=== PATIENT | male | born 1950 | race Caucasian/White ===

== ENCOUNTER → 2017-03-02 12:43 | Outpatient (CLI) | payer BC ==
[2016-05-13 13:13] VITALS: BMI 30.1
[~2017-03-02 12:43] MED LIST: CHLORTHALIDONE25 MG PO; FISH OIL 1,0001 CA1 PO; MULTIPLE VITAMI1 TA1 PO; NORVASC5 MG PO
== END | disposition home or self-care (01) ==
LOC: D.CT 12:43
DX: R10.9 Unspecified abdominal pain (principal); D64.9 Anemia, unspecified

== ENCOUNTER 2018-05-22 05:08 | Day surgery (SDC) | payer BC ==
[~2018-05-22] VITALS: Ht 177.8 cm; Wt 86.4 kg
--- NOTE | ~2018-05-22 | OP ---
PATIENT NAME: KAIT DUMONT MEDICAL RECORD: [id number] :50 LOCATION:D.OPS ADMISSION DATE: SURGEON: MARIAMA KONG MD DATE OF OPERATION: 05/22/2018 PREOPERATIVE DIAGNOSES: History of the colon polyps, in need of surveillance colonoscopy. POSTOPERATIVE DIAGNOSES: History of the colon polyps, in need of surveillance colonoscopy with moderate pandiverticulosis. Also, 2 new sessile polyps. There was a cluster of 2 polyps right next to one another in the cecum. Each of these were 5 mm polyps and then there was another polyp that was a 6 mm polyp that was removed and was also sessile. PROCEDURES: 1. Total colonoscopy to cecum. 2. Hot biopsy forceps polypectomies times 2. SURGEON: Mariama Kong MD APPLICATIONS SYSTEMS ENGINEER: None. BLOOD LOSS: Minimal. ANESTHESIA: IV sedation. COMPLICATIONS: None. The risks, possible complications and alternatives to the procedure were explained to the patient. He elects to proceed. ENDOSCOPIC COURSE: The patient was conveyed to the endoscopy suite electively on 05/22/2018. IV sedation was induced by the anesthesia staff. The patient was placed in the Da Silva position. A digital rectal examination was performed. Post-prostatectomy changes were noted. A colonoscope was inserted through the anus. It was easily advanced to the cecum. The prep was excellent. I slowly withdrew the endoscope. I irrigated and aspirated extensively. I utilized normal imaging as well as narrow band imaging. Polyps were removed utilizing the hot biopsy forceps polypectomy technique. These polyps were removed in their entireties. I dragged the folds. A retroflexed view was obtained in the rectum. The pullback was greater than 18 minute pullback. I then unretroflexed the scope and removed it under direct vision. I plan to see the patient in my office to review the results of pathology in several weeks. I will plan for his next surveillance colonoscopy to take place in 3 years. TRANSINT:[id number] Voice Confirmation ID: [id number] DOCUMENT ID: [id number] OPERATIVE REPORT [id number] KAIT DUMONT ROBERT MD at 1544 CC: ZAIDA CERVANTES and LUISITO DUMONT MD [id number] DICTATION DATE: 05/22/18921 CAREER CONSULTANT: 05/22/18 0954 [facility] 05/22/18 [place] [id number] [place] [address]
--- NOTE | ~2018-05-22 | HP ---
PATIENT: KAIT DUMONT MEDICAL RECORD: [id number] ACCOUNT: [id number] LOCATION:[facility] : 50 ADMISSION DATE: 05/22/18 PCP: ZAIDA CERVANTES MD HISTORY AND PHYSICAL EXAMINATION CHIEF COMPLAINT: Here for colonoscopy. HISTORY OF PRESENT ILLNESS: The patient has history of colon polyps. He has constipation frequently. He is here for surveillance colonoscopy. He has a history of prostate cancer. Last colonoscopy was on 05/13/2016. He had 5 sessile polyps ranging in size from 1.2 cm to 2.5 cm, large internal hemorrhoids and he was having some hematochezia at that time, likely due to internal hemorrhoidal bleeding. Pathology on the polyps revealed adenomatous polyps as well as hyperplastic polyps. He was able to tolerate his prep last evening. SOCIAL HISTORY: Ex-smoker. HOME MEDICATIONS: Please see the nursing list, it includes fish oil. ALLERGIES: ALTACE. REVIEW OF SYSTEMS: Negative for diabetes or thyroid problems. Negative for renal disease or hepatitis. PHYSICAL EXAMINATION: GENERAL: The patient does not appear acutely ill. He does not appear chronically ill. VITAL SIGNS: Reviewed. EARS: External ears appear normal. EYES: Extraocular movements are intact. NECK: Trachea is midline. CHEST: No intercostal retractions. PULMONARY: Nonlabored, no stridor. ABDOMEN: Nontender. IMPRESSION: History of colon polyps. PLAN: Surveillance colonoscopy. TRANSINT:[id number] Voice Confirmation ID: [id number] DOCUMENT ID: [id number] HISTORY AND PHYSICAL [id number] JULIAKAIT ROBERT MD at 1544 CC: ZAIDA CERVANTES and LUISITO DUMONT MD [id number] DICTATION DATE: 05/22/18 0838 PATIENT EDUCATOR: 05/22/18 0926 [facility] 05/22/18 [id number] [place] [address]
[2018-05-22 05:27] LABS: HEMATOCRIT 41.1 % (42.0-54.0); HEMOGLOBIN 14.4 g/dL (13.5-17.5); MCH 31.4 pg (26.0-34.0); MCV 89.5 fL (80.0-100.0); MEAN PLATELET VOLUME 9.6 fL (7.4-10.4); RBC 4.59 10x6/uL (4.20-6.10); RDW 13.1 % (11.5-14.5); WBC 6.3 10x3/uL (4.8-10.8)
[2018-05-22] MEDS ORDERED: LIPITOR10 MG PO (06:27)
[2018-05-22 06:38] VITALS: Ht 177.8 cm; Wt 86.4 kg
== END 2018-05-22 09:58 | disposition home or self-care (01) ==
LOC: D.OPS 05:08
PROVIDERS: Anesthesiology
DX: Z12.11 Encounter for screening for malignant neoplasm of colon (principal); D12.5 Benign neoplasm of sigmoid colon; K63.5 Polyp of colon; K57.30 Diverticulosis of large intestine without perforation or abscess without bleeding; Z86.010 Personal history of colon polyps; Z87.891 Personal history of nicotine dependence; Z79.899 Other long term (current) drug therapy; Z88.8 Allergy status to other drugs, medicaments and biological substances; Z01.812 Encounter for preprocedural laboratory examination

== ENCOUNTER 2018-12-14 06:09 | Day surgery (SDC) | payer BC ==
[~2018-12-14 06:09] MED LIST changes: +LIPITOR10 MG PO
[2018-12-14 06:40] LABS: HEMATOCRIT 40.2 % (42.0-54.0); HEMOGLOBIN 14.1 g/dL (13.5-17.5); MCH 31.1 pg (26.0-34.0); MCHC 35.1 g/dL (31.0-37.0); MCV 88.7 fL (80.0-100.0); RBC 4.53 10x6/uL (4.20-6.10)
[2018-12-14 06:46] LABS: CALC OSMOLALITY 279 mosm/kg (275-300); CALCIUM 8.6 mg/dL (8.5-10.1); CARBON DIOXIDE 25.5 mmol/L (21.0-32.0); CHLORIDE - SERUM 105 mmol/L (98-107); GLUCOSE 96 mg/dL (74-106); POTASSIUM - SERUM 3.9 mmol/L (3.5-5.1); SODIUM 139 mmol/L (136-145); UREA NITROGEN 19 mg/dL (7-18); eGFR NON AFRICAN AMERICAN 79 mL/min (90-120)
[2018-12-14] MEDS ORDERED: BAYER CHEWABLE81 MG PO (08:27)
[2018-12-14 08:36] VITALS: BP 126/87; BMI 27.8
--- NOTE | 2018-12-14 15:45 | NUR ---
C/O OF SEVERE HEADACHE. SPOKE WITH DR JOYCE ORDER RECEIVED FOR MORPHINE 2.5MG IV X1. IV INFILTRATED TO LUE. DC'D WITH CATHETER INTACT.. RESITED RUE. MORPHINE 2.MG ADMINISTERED PER ORDERS. SPOUSE AT BEDSIDE/.
--- NOTE | 2018-12-14 16:20 | NUR ---
RELATES HEADACHE IS MUCH BETTER. SITTING UP INBED WITH HOB ELEVATED. LR HUNG TO RIGHT PIV AT [place].
--- NOTE | 2018-12-14 18:53 | NUR ---
VALIUM 5MG PO ADMINISTERED X1 PER ORDERS.
--- NOTE | 2018-12-14 19:00 | NUR ---
REPORT CALLED TO ARLEY CARRIZALES LPN. PT TRANSFERRING TO ROOM 2238 TO WAIT FOR SURGERY TO BE PERFORMED AND THEN TO RECOVER AND BE DISCHARGED HOME.
--- NOTE | 2018-12-14 19:10 | NUR ---
ARRIVED ON FLOOR VIA WC FROM OUTPATIENT TO AWAIT SURGERY. ORIENTED TO ROOM AND CALL LIGHT. IV PATENT AND INFUSING AT 30ML/HR.
--- NOTE | 2018-12-14 19:39 | NUR ---
OUT OF ROOM TO SURGERY.
[2018-12-14 22:30] VITALS: BP 150/74
--- NOTE | 2018-12-15 00:05 | NUR ---
IV TO RIGHT WRIST DC'D WITH TIP INTACT.
--- NOTE | 2018-12-15 00:05 | NUR ---
URINATED 200 ML CLEAR YELLOW URINE
--- NOTE | 2018-12-15 00:15 | NUR ---
DC VIA WC
--- NOTE | 2018-12-21 17:12 | OP ---
PATIENT NAME: KAIT DUMONT MEDICAL RECORD: [id number] :50 LOCATION:D.[facility] ADMISSION DATE: SURGEON: MARIAMA KONG MD DATE OF OPERATION: 12/14/2018 PREOPERATIVE DIAGNOSIS: Symptomatic right inguinal hernia. POSTOPERATIVE DIAGNOSES: Symptomatic right indirect inguinal hernia, right cord lipoma. PROCEDURES: 1. Open right inguinal hernia repair with bilayer preperitoneal polypropylene mesh. 2. Excision of right cord lipoma. SURGEON: Mariama Kong MD BIOFUELS PLANT MANAGER: None. BLOOD LOSS: Minimal. ANESTHESIA: General. COMPLICATIONS: None. The risks, possible complications and alternatives to the procedure were explained to the patient. He elects to proceed. Discussion specifically included, but was not limited to, bleeding requiring emergency reoperation, infection, intestinal injury, chronic pain. OPERATIVE COURSE: The patient was seen. The right side was marked. He was conveyed to the operating room. General anesthesia was induced by the anesthesia staff. The abdomen and genitals were sterilely prepped and draped. A transverse incision was accomplished in the right groin. Sharp dissection was carried down through skin and subcutaneous tissue as well as Marvin's fascia. The external oblique aponeurosis was then sharply cleaned of overlying connective tissue. The external oblique aponeurosis was then incised along the direction of its fibers. I bluntly dissected down through the internal oblique and transversus abdominis muscles. A preperitoneal dissection was performed. There was no direct component. No femoral component. There was an indirect hernia and the sac was reduced in its entirety. I entered the sac sharply. There was a sliding component. I ligated the sac highly with a pursestring 3-0 Vicryl suture. I then transected the sac distal to this. I then noticed a cord lipoma. I ligated the cord lipoma with 3-0 Vicryl suture and transected distally. I then cut 2 ovals out of a polypropylene mesh. The 2 ovals were then sutured together one on top of the other with a #1 Surgidac. The mesh was placed in the preperitoneal space. Once I was satisfied with placement of the mesh, I allowed the transverse abdominis and internal oblique muscles to come together. These were sutured together with multiple interrupted horizontal mattress 0 Surgidacs incorporating a portion of the underlying mesh with these sutures. OPERATIVE REPORT [id number] KAIT DUMONT At no time was there any apparent nerve injury during this operative procedure. The external oblique aponeurosis was then closed with running #1 Vicryls. Marvin fascia was approximated with interrupted 3-0 Vicryls. The skin was approximated with a running intracuticular 3-0 Vicryl. Benzoin and Steri-Strips were applied. The patient was then extubated and conveyed to the post-anesthesia care unit where he was in stable condition. I will see him in the office in 2-3 weeks. He is going to be dismissed home on [place] as well as [place]. TRANSINT:[id number] Voice Confirmation ID: [id number] DOCUMENT ID: [id number] MARIAMA KONG MD at 1712 CC: ZAIDA CERVANTES [id number] DICTATION DATE: 12/14/182226 PHOTOENGRAVER APPRENTICE: 12/15/18 0119 [facility] 12/15/18 [facility] [address] [place] [address]
== END 2018-12-15 00:15 | disposition home or self-care (01) ==
LOC: D.MS 06:09 → D.OPS 06:09 → D.PAN 08:45 → D.OPS 09:30 → D.MS 19:05 → D.OPS 12-15 00:15
PROVIDERS: Anesthesiology; ATTEND Surgery
DX: K40.90 Unilateral inguinal hernia, without obstruction or gangrene, not specified as recurrent (principal); D17.6 Benign lipomatous neoplasm of spermatic cord; Z01.812 Encounter for preprocedural laboratory examination

== ENCOUNTER → 2019-07-24 08:07 | Outpatient (CLI) | payer BC ==
[~2019-07-24 08:07] MED LIST changes: +BAYER CHEWABLE81 MG PO
== END | disposition home or self-care (01) ==
LOC: D.HCCECHO 08:07
PROVIDERS: ATTEND Internal Medicine Cardiovascular Disease
DX: I35.0 Nonrheumatic aortic (valve) stenosis (principal)

== ENCOUNTER → 2020-12-17 07:53 | Outpatient (CLI) | payer BC, MEDICARE | END | disposition home or self-care (01) | LOC: D.HCCECHO 07:53 | PROVIDERS: ATTEND Internal Medicine Cardiovascular Disease | DX: I10 Essential (primary) hypertension (principal) ==